=== PATIENT | female | born 1970 | race Caucasian/White ===

== ENCOUNTER 2022-07-09 18:33 | Observation (INO) ==
[2022-07-09] MEDS ORDERED: LEVOFLOXACIN INJ 750 MG/150 ML PREMIX IV STA (20:46)
[2022-07-09] MEDS ORDERED: SODIUM CHLORIDE 0.9% 1,000 ML IV STA (20:46)
[2022-07-09] MEDS ORDERED: ONDANSETRON 4 MG/2 ML VIAL IV ONE (20:46)
[2022-07-09] MEDS ORDERED: MORPHINE 2 MG/1 ML SYRINGE IV ONE (20:46)
[2022-07-09 21:51] LABS: Basophils % 0.4 % (0.0-0.8); Eosinophils # 0.1 10*3/uL (0.0-0.87); Eosinophils % 1.6 % (0.00-10.9); Hematocrit 35.6 VOL% (35.7-47.0); Hemoglobin 12.4 GM/DL (12.0-16.0); Immature Granulocytes % 0.4 %; Immature Granulocytes Absolute 0.03 #; Lymphocytes # 2.8 10*3/uL (1.4-4.0); Mean Corpuscular HGB Conc 34.8 GM/DL (32-36); Mean Platelet Volume 10.3 FL (9.6-12.0); Monocytes # 0.6 10*3/uL (0.11-0.8); Monocytes % 7.3 % (1.7-12.7); Neutrophils % 53.3 % (38.7-73.9); Platelet Count 250 T/CUMM (130-400); Red Blood Count 3.87 MC/CUMM (3.8-5.5); White Blood Count 7.68 T/CUMM (4-12)
[2022-07-09 22:06] LABS: INR 0.9; PT Patient Result 9.8 SECS (10.1-12.1)
[2022-07-09 22:12] LABS: Albumin 3.8 G/DL (3.4-5.0); Bilirubin,Total 0.5 MG/DL (0.20-1.00); Calcium 9.2 MG/DL (8.5-10.1); Osmolality,Calculated 284.1 MOS/KG (273-304); Potassium 3.8 MMOL/L (3.5-5.1); Total Protein 7.2 G/DL (6.4-8.2)
[2022-07-10] MEDS ORDERED: MORPHINE 2 MG/1 ML SYRINGE IV PRN
[2022-07-10] MEDS ORDERED: ONDANSETRON 4 MG/2 ML VIAL IV PRN
[2022-07-10] MEDS ORDERED: ACETAMINOPHEN 325 MG TABLET PO PRN
[2022-07-10] MEDS ORDERED: SIMETHICONE CHEW 125 MG TABLET PO PRN
[2022-07-10 04:15] LABS: Basophils % 0.4 % (0.0-0.8); Eosinophils # 0.1 10*3/uL (0.0-0.87); Eosinophils % 1.9 % (0.00-10.9); Hematocrit 32.2 VOL% (35.7-47.0); Hemoglobin 11.1 GM/DL (12.0-16.0); Immature Granulocytes % 0.4 %; Immature Granulocytes Absolute 0.02 #; Lymphocytes % 39.3 % (21.3-54.2); Mean Corpuscular HGB Conc 34.5 GM/DL (32-36); Mean Corpuscular Volume 92.3 FL (87-102); Monocytes # 0.5 10*3/uL (0.11-0.8); Monocytes % 9.1 % (1.7-12.7); Neutrophils % 48.9 % (38.7-73.9); Platelet Count 216 T/CUMM (130-400); Red Blood Count 3.49 MC/CUMM (3.8-5.5); Red Cell Distribution Width 13.1 % (9.3-17.3); White Blood Count 5.19 T/CUMM (4-12)
[2022-07-10 04:38] LABS: Calcium 8.8 MG/DL (8.5-10.1); Osmolality,Calculated 279.4 MOS/KG (273-304); Potassium 3.9 MMOL/L (3.5-5.1)
[2022-07-10] MEDS ORDERED: SUCCINYLCHOLINE 200 MG/10 ML VIAL ONE (10:07)
[2022-07-10] MEDS ORDERED: SEVOFLURANE 1 UNIT/15 MINUTE INH ONE ×2 (10:07→11:07)
[2022-07-10] MEDS ORDERED: LIDOCAINE 2% 5 ML VIAL ONE (10:07)
[2022-07-10] MEDS ORDERED: propofoL 200 MG/20 ML VIAL IV ONE (10:07)
[2022-07-10] MEDS ORDERED: fentaNYL 100 MCG/2 ML VIAL ONE (10:08)
[2022-07-10] MEDS ORDERED: HYDROmorphone 1 MG/1 ML SYRINGE IV PRN ×2 (10:08)
[2022-07-10] MEDS ORDERED: ROCURONIUM 50 MG/5 ML VIAL IV ONE (10:11)
[2022-07-10] MEDS ORDERED: MIDAZOLAM 2 MG/2 ML VIAL ONE (10:42)
[2022-07-10] MEDS ORDERED: ePHEDrine 50 MG/ML VIAL ONE (10:55)
[2022-07-10] MEDS ORDERED: DEXAMETHASONE 20 MG/5 ML VIAL ONE (10:57)
[2022-07-10] MEDS ORDERED: ONDANSETRON 4 MG/2 ML VIAL ONE (10:57)
[2022-07-10] MEDS ORDERED: LACTATED RINGERS 1,000 ML IV SCH (11:00)
[2022-07-10] MEDS: PANTOPRAZOLE 40 MG TABLET PO SCH (14:26)
[2022-07-10] MEDS: CHOLECALCIFEROL 1,000 UNIT TABLET PO SCH (14:26)
[2022-07-10] MEDS: DOCUSATE SODIUM 100 MG CAPSULE PO SCH ×2 (14:26→20:59)
[2022-07-10] MEDS: LOSARTAN 50 MG TABLET PO SCH ×2 (14:26→14:40)
[2022-07-10] MEDS: ASCORBIC ACID 500 MG TABLET PO SCH (14:26)
[2022-07-10] MEDS: CYANOCOBALAMIN 500 MCG TABLET PO SCH (14:26)
[2022-07-10] MEDS ORDERED: clonazePAM 0.5 MG TABLET PO SCH (21:00)
[2022-07-10] MEDS ORDERED: LEVOFLOXACIN INJ 750 MG/150 ML PREMIX IV SCH (21:00)
[2022-07-10] MEDS ORDERED: FLUoxetine 20 MG CAPSULE PO SCH (21:00)
[2022-07-11] MEDS: CHOLECALCIFEROL 1,000 UNIT TABLET PO SCH (10:06)
[2022-07-11] MEDS: PANTOPRAZOLE 40 MG TABLET PO SCH (10:06)
[2022-07-11] MEDS: DOCUSATE SODIUM 100 MG CAPSULE PO SCH (10:06)
[2022-07-11] MEDS: CYANOCOBALAMIN 500 MCG TABLET PO SCH (10:06)
[2022-07-11] MEDS: LOSARTAN 50 MG TABLET PO SCH (10:06)
[2022-07-11] MEDS: ASCORBIC ACID 500 MG TABLET PO SCH (10:06)
[2022-07-11 12:57] VITALS: BP 130/66
[2022-07-11] MEDS ORDERED: FLUCONAZOLE 200 MG TABLET PO ONE (15:00)
[2022-07-11] MEDS ORDERED: clonazePAM 0.5 MG TABLET PO SCH (21:00)
[2022-07-11] MEDS ORDERED: FLUoxetine 20 MG CAPSULE PO SCH (21:00)
== END 2022-07-11 16:00 | disposition home or self-care (01) ==
LOC: N.ED 18:33 → N.EDINP 07-10 00:29 → INTOOBSV 07-10 00:29 → N.EDINP 07-10 10:25 → N.2E 07-10 12:37
PROVIDERS: ADMIT Internal Medicine; ATTEND Internal Medicine